=== PATIENT | male | born 1965 | race Caucasian/White ===

== ENCOUNTER 2021-05-24 01:01 | Observation (INO) | payer SELFPAY ==
[~2021-05-24] VITALS: Ht 175.3 cm; Wt 126.5 kg
[2021-05-24 01:20] LABS: BASOPHILS ABSOLUTE AUTO 0.05 K/mm3 (0.00-0.23); BASOPHILS PERCENT AUTO 1 % (0-2); EOSINOPHILS ABSOLUTE AUTO 0.15 K/mm3 (0.00-0.68); EOSINOPHILS PERCENT AUTO 2 % (0-6); Hematocrit 43.7 % (37.0-53.0); Hemoglobin 14.9 g/dL (13.5-17.5); IMMATURE GRAN ABSOLUTE AUTO 0.01 K/mm3 (0.00-0.10); IMMATURE GRAN PERCENT AUTO 0 % (0-1); LYMPHOCYTES PERCENT AUTO 30 % (21-46); MONOCYTES ABSOLUTE AUTO 0.52 K/mm3 (0.16-1.47); MONOCYTES PERCENT AUTO 8 % (4-13); Mean Corpuscular HGB 30.2 pg (26.0-34.0); Mean Corpuscular HGB Conc 34.1 g/dL (31.5-36.5); Mean Corpuscular Volume 89 fL (80-100); Mean Platelet Volume 8.9 fL (9.1-12.4); NEUTROPHILS PERCENT AUTO 59 % (41-73); Platelet Count 215 K/mm3 (150-400); RDW Coefficient Variation 12.5 % (11.7-14.2); Red Blood Cell Count 4.93 M/mm3 (4.30-5.90); White Blood Cell Count 6.93 K/mm3 (4.00-11.30)
[2021-05-24 01:30] LABS: Calcium, Ionized (POC) 1.08 mmol/L (1.10-1.46); Chloride (POC) 102 mmol/L (98-108); Creatinine (POC) 1.1 mg/dL (0.8-1.3); Glucose (ISTAT POC) 171 mg/dL (70-99); Hemoglobin (POC) 15.3 g/dL (13.5-17.5); Potassium (POC) 3.6 mmol/L (3.5-5.5); Sodium (POC) 139 mmol/L (135-148); Total CO2 (POC) 24 mmol/L (21-32)
[2021-05-24 01:38] LABS: Alanine Aminotransfer (ALT/SGP 123 U/L (12-78); Albumin, Blood 3.9 g/dL (3.4-5.0); Alk Phos 66 U/L (50-136); Anion Gap 4 mmol/L (6-16); Aspartate Aminotrans (AST/SGOT 59 U/L (12-37); Bilirubin, Total 0.4 mg/dL (0.1-1.0); Blood Urea Nitrogen 22 mg/dL (8-24); Bun/Creatinine Ratio 19.5 (12.0-20.0); CO2, Blood 28 mmol/L (21-32); Calcium, Blood 8.6 mg/dL (8.5-10.1); Chloride, Blood 106 mmol/L (98-108); Creatinine, Blood 1.13 mg/dL (0.60-1.20); Globulin, Blood 4.1 g/dL (2.2-4.0); Glomerular Filtration Rate >60 (60-); Glucose, Blood 165 mg/dL (70-99); Potassium, Blood 3.6 mmol/L (3.5-5.5); Sodium, Blood 138 mmol/L (136-145); Troponin I 0.038 ng/mL (0.000-0.040)
[2021-05-24 05:52] LABS: CHOL/HDL RATIO 3.5; Cholesterol 164 mg/dL (50-200); HDL Cholesterol 47 mg/dL (>39); LDL/HDL RATIO 2.2; Low Density Lipoprotein Chol 104 mg/dL (0-110); Triglycerides 67 mg/dL (30-160); Very Low Density Lipoprot Chol 13 mg/dL (6-32)
[2021-05-24 10:25] LABS: SARS-Cov-2 (COVID-19) PCR, MMC NEGATIVE (NEGATIVE)
--- NOTE | 2021-05-24 11:13 | NUR ---
Echocardiogram completed.
--- NOTE | 2021-05-24 19:55 | NUR ---
SHIFT SUMMARY: PATIENT ARRIVED FROM INVENTORY CONTROL SPECIALIST AROUND 1430 TR BAND SITE OBSERVED WITH TRNASFERING RN, SITE OBSERVED GREAT NO HEMATOMA OR SWELLING. PATIENT TOLERATED WELL, HOWEVER DID HAVE CP AT A 3/10 WHICH WAS TREAED PER EMR AND SUBSIDED TO A 1/10, TR BAND AIR WAS RELEASED BUT NOT REMOVED ARM BOARD STILL IN PLACE. RHYTHM HAS BEEN SINUS ARRHYTHMIA WITH A 1ST DEGREE HEART BLOCK, NO OTHER CONCERNS, INDEPENDENT, TROPONIN TRENDING DOWN. DR TATUM TO ASSESS PATIENT IN THE MORNING.
[2021-05-25 04:33] LABS: BASOPHILS ABSOLUTE AUTO 0.05 K/mm3 (0.00-0.23); BASOPHILS PERCENT AUTO 1 % (0-2); EOSINOPHILS ABSOLUTE AUTO 0.06 K/mm3 (0.00-0.68); EOSINOPHILS PERCENT AUTO 1 % (0-6); Hematocrit 41.1 % (37.0-53.0); Hemoglobin 13.9 g/dL (13.5-17.5); IMMATURE GRAN ABSOLUTE AUTO 0.03 K/mm3 (0.00-0.10); IMMATURE GRAN PERCENT AUTO 0 % (0-1); LYMPHOCYTES ABSOLUTE AUTO 1.62 K/mm3 (0.84-5.20); LYMPHOCYTES PERCENT AUTO 17 % (21-46); MONOCYTES ABSOLUTE AUTO 0.87 K/mm3 (0.16-1.47); MONOCYTES PERCENT AUTO 9 % (4-13); Mean Corpuscular HGB 30.2 pg (26.0-34.0); Mean Corpuscular HGB Conc 33.8 g/dL (31.5-36.5); Mean Corpuscular Volume 89 fL (80-100); Mean Platelet Volume 9.2 fL (9.1-12.4); NEUTROPHILS PERCENT AUTO 73 % (41-73); Platelet Count 210 K/mm3 (150-400); RDW Coefficient Variation 12.7 % (11.7-14.2); RDW Standard Deviation 41.2 fL (35.1-46.3); White Blood Cell Count 9.63 K/mm3 (4.00-11.30)
[2021-05-25 04:53] LABS: Alanine Aminotransfer (ALT/SGP 111 U/L (12-78); Albumin, Blood 3.6 g/dL (3.4-5.0); Alk Phos 61 U/L (50-136); Anion Gap 4 mmol/L (6-16); Aspartate Aminotrans (AST/SGOT 83 U/L (12-37); Bilirubin, Total 0.7 mg/dL (0.1-1.0); Blood Urea Nitrogen 18 mg/dL (8-24); Bun/Creatinine Ratio 16.5 (12.0-20.0); CO2, Blood 27 mmol/L (21-32); Calcium, Blood 8.3 mg/dL (8.5-10.1); Chloride, Blood 106 mmol/L (98-108); Creatinine, Blood 1.09 mg/dL (0.60-1.20); Globulin, Blood 3.6 g/dL (2.2-4.0); Glomerular Filtration Rate >60 (60-); Glucose, Blood 118 mg/dL (70-99); Potassium, Blood 4.3 mmol/L (3.5-5.5); Sodium, Blood 137 mmol/L (136-145); Total Protein, Blood 7.2 g/dL (6.4-8.2)
--- NOTE | 2021-05-25 05:52 | NUR ---
SHIFT SUMMARY PT AOX4. S/P FROM MECHANICAL CAR CHECKER YESTERDAY WITH TR BAND. TR BAND REMOVED AROUND 2100 WITH WINDOW/OPSITE. SITE ON R WRIST/FA APPEARS TO BE CLEAN AND DRY. NO HEMATOMA. PT DENIES PAIN, NUMBNESS AND TINGLING. ARM BOARD STILL IN PLACED. PT REPORTS PAIN 1/10 AT THE BEGINNING OF SHIFT, AND DENIES CHEST PAIN THIS MORNING. HE STATES THAT THE PAIN IS MORE ON HIS BACK FEELING STIFF WITH UNCOMFORTABLE SLEEPING POSITION. PT ALSO REPORT H/A AT MIDNIGHT. MEDICATED WITH TYELNOL WITH RELIEF FROM 10 TO 6/10 THIS MORNING. PT WAS ABLE TO SLEEP A LITTLE AFTER MIDNIGHT. PT IS INDEPENDENT IN ROOM. VOIDING X4 T/O SHIFT. TELE REMAIN SINUS ARRHYTHIA WITH BBB. WILL PROVIDE REPORT TO ONCOMING NURSE. CALL LIGHT WITHIN REACH.
[2021-05-25] MEDS ORDERED: ASPI81CH PO (11:00)
[2021-05-25] MEDS ORDERED: ACET325 PO (11:00)
[2021-05-25] MEDS ORDERED: ATOR20 PO (11:00)
[2021-05-25] MEDS ORDERED: CLOP75 PO (11:00)
[2021-05-25] MEDS ORDERED: Isosorbide Mono30 MG PO (11:01)
[2021-05-25] MEDS ORDERED: METO25ER PO (11:01)
--- NOTE | 2021-05-25 11:47 | NUR ---
DISCHARGE SUMMARY PT A&Ox4; CALM AND COOPERATIVE WITH CARE. PT REPORTS HEADACHE THIS AM, MEDCIATED PER EMAR, WITH MINIMAL IMPROVEMENT. PT DENIES CHEST PAIN/PRESSURE, LASHON AND HR STABLE. RIGHT RADIAL SITE C/D/I SLIGHT BRUISING NOTED, NO BLEEDING OR HEMATOMA NOTED. PT DENIES SOB, NASUSEA AND DIZZINESS. VSS. NO OTHER ACUTE CHAGNES NOTED. EDUCATED PT ON DISCHARGE INSTRUCTIONS, FOLLOW UP APPOINTMENT, MEDCIATIONS AND WOUND CARE FOR RADIAL SITE. PT EDUCATED ON IMPORTANCE OF PICKING UP PRESCRIPTIONS AND TAKING MEDICATES PRESCRIBED. PT LEFT ROOM VIA WHEELCHAIR AT 1151.
== END 2021-05-25 11:51 | disposition home or self-care (01) ==
LOC: ER 01:01 → ERHOLD 01:02 → SURS 14:16
PROVIDERS: Emergency Medicine; Internal Medicine; Internal Medicine Cardiovascular Disease; Physician Assistant; Student in an Organized Health Care Education/Training Program; ADMIT Internal Medicine
DX: I21.4 Non-ST elevation (NSTEMI) myocardial infarction (principal); I10 Essential (primary) hypertension; K75.81 Nonalcoholic steatohepatitis (NASH); R73.03 Prediabetes; G89.29 Other chronic pain; E66.01 Morbid (severe) obesity due to excess calories; Z68.41 Body mass index [BMI] 40.0-44.9, adult; Z82.49 Family history of ischemic heart disease and other diseases of the circulatory system; Z87.81 Personal history of (healed) traumatic fracture
CPT/HCPCS: 36415; 36416; 71275; 74175; 76937; 80047; 80053; 80061; 83036; 84484; 85014; 85025; 85347; 85730; 86850; 86900; 86901; 93005; 93010; 93306; 93458; 93567; 96365-59; 96366-59; 96375-59; 96376-59; 99152; 99153; 99285-25; A9270; C1769; C1894; G0378; J1644; J2250; J2270; J2405; J3010; J7030; J7050; Q9967; U0004

== ENCOUNTER 2022-02-06 12:59 | Emergency (ER) | payer OTHER ==
[~2022-02-06] VITALS: Ht 175.3 cm; Wt 109.8 kg
[~2022-02-06 12:59] MED LIST: ACET325 PO; ASPI81CH PO; ATOR20 PO; CLOP75 PO; Isosorbide Mono30 MG PO; METO25ER PO
[2022-02-06 13:34] LABS: BASOPHILS ABSOLUTE AUTO 0.02 K/mm3 (0.00-0.23); BASOPHILS PERCENT AUTO 1 % (0-2); EOSINOPHILS PERCENT AUTO 0 % (0-6); Hematocrit 47.7 % (37.0-53.0); Hemoglobin 16.1 g/dL (13.5-17.5); IMMATURE GRAN ABSOLUTE AUTO 0.01 K/mm3 (0.00-0.10); IMMATURE GRAN PERCENT AUTO 0 % (0-1); LYMPHOCYTES PERCENT AUTO 27 % (21-46); MONOCYTES ABSOLUTE AUTO 0.62 K/mm3 (0.16-1.47); MONOCYTES PERCENT AUTO 15 % (4-13); Mean Corpuscular HGB Conc 33.8 g/dL (31.5-36.5); Mean Corpuscular Volume 89 fL (80-100); NEUTROPHILS ABSOLUTE AUTO 2.32 K/mm3 (1.96-9.15); NEUTROPHILS PERCENT AUTO 57 % (41-73); Platelet Count 164 K/mm3 (150-400); RDW Coefficient Variation 13.1 % (11.7-14.2); RDW Standard Deviation 42.8 fL (35.1-46.3); Red Blood Cell Count 5.37 M/mm3 (4.30-5.90); White Blood Cell Count 4.07 K/mm3 (4.00-11.30)
[2022-02-06 13:55] LABS: Albumin, Blood 3.8 g/dL (3.4-5.0); Bilirubin, Total 0.4 mg/dL (0.1-1.0); Bun/Creatinine Ratio 21.9 (12.0-20.0); Calcium, Blood 8.8 mg/dL (8.5-10.1); Creatinine, Blood 1.05 mg/dL (0.60-1.20); Globulin, Blood 3.8 g/dL (2.2-4.0); Potassium, Blood 3.7 mmol/L (3.5-5.5); Total Protein, Blood 7.6 g/dL (6.4-8.2)
[2022-02-06 14:27] LABS: Influenza A, PCR NEGATIVE (NEGATIVE); Influenza B, PCR NEGATIVE (NEGATIVE); Resp Syncytial Virus, PCR NEGATIVE (NEGATIVE)
[2022-02-06 15:02] LABS: SARS-Cov-2 (COVID-19) PCR, MMC POSITIVE (NEGATIVE)
== END 2022-02-06 15:55 | disposition home or self-care (01) ==
LOC: ER 12:59
PROVIDERS: Physician Assistant
DX: U07.1 COVID-19 (principal); I25.2 Old myocardial infarction; R07.9 Chest pain, unspecified; Z79.82 Long term (current) use of aspirin; Z79.899 Other long term (current) drug therapy; Z79.02 Long term (current) use of antithrombotics/antiplatelets
CPT/HCPCS: 0241U; 36415; 71046; 80053; 83690; 83880; 84484; 85025